=== PATIENT | female | born 1950 | race Caucasian/White ===

== ENCOUNTER 2021-08-25 13:41 | Outpatient (CLI) | payer MEDICARE | END 2021-08-25 13:42 | disposition home or self-care (01) | LOC: DTY/OP 13:41 | PROVIDERS: ATTEND Surgery | DX: E66.01 Morbid (severe) obesity due to excess calories (principal); E11.9 Type 2 diabetes mellitus without complications | CPT/HCPCS: 97802 ==

== ENCOUNTER 2021-10-13 11:14 | Inpatient (IN) | payer MEDICARE ==
[2021-10-18] MEDS ORDERED: Heparin 5,000 UNITS/ML VIAL ONE (09:50)
[2021-10-18] MEDS ORDERED: ceFAZolin Sodium (SDC) 2 GM/100 ML BAG ONE (09:50)
[2021-10-18] MEDS ORDERED: Scopolamine 1.5 mg/72 hour Patch ONE (11:21)
[2021-10-18] MEDS ORDERED: Lidocaine 1% w/Epinephrine 1:100K 20 ML VIAL ONE (13:47)
[2021-10-18] MEDS ORDERED: Bupivacaine 0.25% HCL 30 ML VIAL ONE (13:47)
[2021-10-18] MEDS ORDERED: Fentanyl 100 MCG/2 ML VIAL ONE (13:51)
[2021-10-18] MEDS ORDERED: Dexamethasone 20 MG/5 ML VIAL ONE (14:03)
[2021-10-18] MEDS ORDERED: Glycopyrrolate 0.2 MG/ML 5 ML SYRINGE ONE (14:03)
[2021-10-18] MEDS ORDERED: ePHEDrine 50 MG/ML VIAL ONE (14:03)
[2021-10-18] MEDS ORDERED: Lidocaine 1% PF 5 ML VIAL ONE (14:03)
[2021-10-18] MEDS ORDERED: Rocuronium Bromide 10 MG/ML (10ML VIAL) ONE (14:03)
[2021-10-18] MEDS ORDERED: PROPOFOL 200 MG/20 ML VIAL ONE (14:03)
[2021-10-18] MEDS ORDERED: Ondansetron PF 4 MG/2 ML Vial ONE ×2 (14:03→16:38)
[2021-10-18] MEDS ORDERED: Ondansetron HCl/PF 4 MG/2 ML Vial IVP PRN (15:04)
[2021-10-18] MEDS ORDERED: Promethazine HCl 25 MG/ML VIAL IVPB PRN (15:04)
[2021-10-18] MEDS ORDERED: Promethazine HCl 25 MG/ML VIAL ONE ×2 (15:54)
[2021-10-18] MEDS ORDERED: Ondansetron PF 4 MG/2 ML Vial IVP PRN ×2 (16:30→18:02)
[2021-10-18] MEDS ORDERED: Zolpidem Tartrate 5 MG TAB PO PRN (16:30)
[2021-10-18] MEDS ORDERED: Naloxone HCl 0.4 mg/ml Vial IV PRN (16:30)
[2021-10-18] MEDS ORDERED: diphenhydrAMINE 25 MG CAP PO PRN (16:30)
[2021-10-18] MEDS ORDERED: Fentanyl CADD 100 ML IVPB SCH (16:30)
[2021-10-18] MEDS ORDERED: diphenhydrAMINE 50 MG/ML VIAL IM/IV PRN (16:30)
[2021-10-18] MEDS ORDERED: Promethazine HCl 25 MG/ML VIAL IM PRN ×2 (16:30→18:02)
[2021-10-18] MEDS ORDERED: HumaLOG 300 UNITS/3 ML VIAL SC PRN (18:02)
[2021-10-18] MEDS ORDERED: Dextrose 50% Abboject 50 ML SYRINGE SLOW IVP PRN (18:02)
[2021-10-18] MEDS ORDERED: Hydrocodone-Acetamin 15 ML UDCUP PO PRN (18:02)
[2021-10-18] MEDS ORDERED: Dextrose 5% in Water 1,000 ML IV PRN (18:02)
[2021-10-18] MEDS ORDERED: hydrALAZINE 20 MG/ML VIAL SLOW IVP PRN (18:02)
[2021-10-18] MEDS ORDERED: diphenhydrAMINE 50 MG/ML VIAL IVP PRN (18:02)
[2021-10-18] MEDS ORDERED: diphenhydrAMINE 50 MG/ML VIAL IM PRN (18:45)
[2021-10-18] MEDS ORDERED: Oxybutynin 5 MG TAB PO SCH (21:00)
[2021-10-19 03:31] VITALS: BMI 48.6
[2021-10-19] MEDS: Sodium Chloride 0.9% 1,000 ML IV SCH ×2 (03:38→04:23)
[2021-10-19 06:16] LABS: #Lymphocytes 0.8 thou/uL (1.20-3.40); #Monocytes 0.4 thou/uL (0.11-0.59); #Neutrophils 4.3 thou/uL (1.40-6.50); %Eosinophils 0.2 % (0.0-10.0); %Lymphocytes 13.9 % (21.0-51.0); %Monocytes 7.9 % (0.0-10.0); Hemoglobin 11.1 g/dL (12.0-16.0); Mean Corpuscular HGB CONC 32.4 g/dL (32.0-36.0); Mean Corpuscular Hemoglobin 31.3 pg (27.0-31.0); Mean Corpuscular Volume 96.6 fL (78.0-98.0); Mean Platelet Volume 7.3 fL (7.4-10.4); Platelet Count 277 thou/uL (130-400); RBC Distribution Width 12.5 % (11.5-14.5); Red Blood Cell (RBC) Count 3.55 mill/uL (4.20-5.40); White Blood Cell (WBC) Count 5.5 thou/uL (4.8-10.8)
[2021-10-19 06:39] LABS: Anion Gap 9 mmol/L (10-20); BUN (Urea Nitrogen) 61 mg/dL (9.8-20.1); Calc. Creatinine Clearance 78 mL/min (70-130); Calcium 8.6 mg/dL (7.8-10.44); Carbon Dioxide 23 mmol/L (23-31); Chloride 113 mmol/L (98-107); Glucose 130 mg/dL (80-115); Potassium 4.9 mmol/L (3.5-5.1); Sodium 140 mmol/L (136-145)
[2021-10-19] MEDS ORDERED: Enoxaparin Sodium 40 MG/0.4 ML SYRINGE SC SCH (09:00)
[2021-10-19] MEDS ORDERED: Pantoprazole 40 MG VIAL IVP SCH (09:00)
[2021-10-19] MEDS ORDERED: Montelukast Sodium 10 mg Tablet PO SCH (09:00)
[2021-10-19] MEDS ORDERED: Losartan 25 MG TAB PO SCH (09:00)
[2021-10-19] MEDS ORDERED: Oxybutynin 5 MG TAB PO SCH (09:00)
[2021-10-19 12:05] VITALS: BP 122/70; TEMP 97.6
[2021-10-22] MEDS ORDERED: FLU VACC QS2021-22(65YR UP)/PF 240 MCG/0.7 ML SYRINGE IM ONE (09:00)
== END 2021-10-19 12:55 | disposition home or self-care (01) | DRG 621 ==
LOC: UNDOADMIN 10-18 08:57 → 2NO 10-18 08:57 → SURG A 10-18 09:38 → SURG B 10-18 17:54
PROVIDERS: ADMIT Surgery; ATTEND Surgery
PROC: 0DB64Z3 Excision of Stomach, Percutaneous Endoscopic Approach, Vertical (ICD-10-PCS; principal; 2021-10-18)
PROC: 8E0W4CZ Robotic Assisted Procedure of Trunk Region, Percutaneous Endoscopic Approach (ICD-10-PCS; 2021-10-18)
DX: E66.01 Morbid (severe) obesity due to excess calories (principal); E78.5 Hyperlipidemia, unspecified; N18.2 Chronic kidney disease, stage 2 (mild); E03.9 Hypothyroidism, unspecified; E11.22 Type 2 diabetes mellitus with diabetic chronic kidney disease; F32.A Depression, unspecified; F41.9 Anxiety disorder, unspecified; I12.9 Hypertensive chronic kidney disease with stage 1 through stage 4 chronic kidney disease, or unspecified chronic kidney disease; Z68.43 Body mass index [BMI] 50.0-59.9, adult; Z90.710 Acquired absence of both cervix and uterus; Z79.899 Other long term (current) drug therapy; Z79.4 Long term (current) use of insulin
CPT/HCPCS: 36415; 36416; 80048; 85025; 88307; C9113; J0690; J1100; J1644; J1650; J1815; J2405; J2550; J2704; J3010; J3490; J7050; S0020

== ENCOUNTER 2021-10-13 12:43 | Outpatient (CLI) | payer MEDICARE ==
[2021-10-13 13:48] LABS: #Eosinphils 0.1 10x3/uL (0.0-0.5); #Monocytes 0.4 10x3/uL (0.0-1.1); #Neutrophils 3.5 10x3/uL (1.5-8.4); %Basophils 0.8 % (0.0-2.0); %Eosinophils 1.7 % (0.0-6.0); %Lymphocytes 21.9 % (18.0-47.0); %Monocytes 7.3 % (0.0-10.0); %Neutrophils 68.1 % (40.0-75.0); Hemoglobin 11.9 g/dL (12.0-15.5); Mean Corpuscular HGB CONC 32.3 g/dL (32.0-36.0); Mean Corpuscular Hemoglobin 30.4 pg (27.0-33.0); Mean Corpuscular Volume 94.1 fl (81.6-98.3); Mean Platelet Volume 9.8 fl (7.4-10.4); Platelet Count 276 10x3/uL (150-450); RBC Distribution Width 13.9 % (11.5-14.5); Red Blood Cell (RBC) Count 3.91 10x6/uL (3.90-5.03); White Blood Cell (WBC) Count 5.2 10x3/uL (3.5-10.5)
[2021-10-13 14:04] LABS: ALT (SGPT) 18 U/L (8-55); AST (SGOT) 15 U/L (5-34); Albumin 4.1 g/dL (3.4-4.8); Alkaline Phosphatase 54 U/L (40-110); Anion Gap 16 mmol/L (10-20); BUN (Urea Nitrogen) 85 mg/dL (9.8-20.1); Bilirubin, Total 0.4 mg/dL (0.2-1.2); Calc. Creatinine Clearance 0 mL/min (70-130); Carbon Dioxide 19 mmol/L (23-31); Chloride 109 mmol/L (98-107); Glucose 134 mg/dL (80-115); Potassium 4.9 mmol/L (3.5-5.1); Protein, Total 6.1 g/dL (5.8-8.1); Sodium 139 mmol/L (136-145)
[2021-10-13 16:17] LABS: Hemoglobin A1c 5.9 % (4.0-6.0)
[2021-10-14 21:07] LABS: SARS-CoV-2 PCR by NAA Not Detected (NotDetected)
== END 2021-10-13 12:44 | disposition home or self-care (01) ==
LOC: LABBT 12:43
PROVIDERS: ATTEND Surgery
DX: Z01.818 Encounter for other preprocedural examination (principal); E66.01 Morbid (severe) obesity due to excess calories; Z20.822 Contact with and (suspected) exposure to COVID-19
CPT/HCPCS: 71046; 80053; 83036; 85025; 93005; U0003; U0005; 93010